=== PATIENT | female | born 1955 | race Caucasian/White ===

== ENCOUNTER → 2017-07-20 10:16 | Outpatient (CLI) | payer OTHER, SELFPAY ==
[2017-07-20 11:15] LABS: Add Manual Diff / Slide Review NO; Basophils Percent Auto 1.2 % (0-2); Eosinophils Percent Auto 1.3 % (2-4); Hematocrit 38.9 % (36-46); Lymphocytes Percent Auto 15.4 % (25-40); Mean Corpuscular HGB Conc 33.4 % (30-36); Mean Corpuscular Hemoglobin 30.5 PG (26-34); Mean Corpuscular Volume 91.2 fL (80-100); Monocytes Percent Auto 7.2 % (3-14); Neutrophils Absolute Auto 5300 /uL (3000-5900); Neutrophils Percent Auto 74.9 % (50-75); Platelet Count 466 X10^3/uL (150-400); Red Blood Cell Count 4.27 X10^6/uL (4.0-5.2); Red Cell Distribution Width 14.5 % (11.6-14.8); White Blood Cell Count 7.1 X10^3/uL (4.5-11.0)
[2017-07-20] MEDS: diphenhydrAMINE 50 MG/ML VIAL 25 MG IV (11:18)
[2017-07-20] MEDS: methylPREDNISolone 125 MG/2 ML VIAL IV (11:22)
[2017-07-20 11:32] VITALS: PULSE 76; RESP 18; TEMP 36.9; O2SAT 98
[2017-07-20] MEDS: INFLIXIMAB DYYB IV (11:42)
[2017-07-20] MEDS: SODIUM CHLORIDE 0.9% IV (11:42)
[2017-07-20 12:01] LABS: Alanine Aminotransferase 25 IU/L (9-52); Albumin 3.5 g/dL (3.5-5.0); Albumin Globulin Ratio 1.4 (1.0-2.8); Alkaline Phosphatase 67 U/L (38-126); Aspartate Aminotransferase 19 IU/L (14-36); Bilirubin Total 0.5 mg/dL (0.2-1.3); Bilirubin Unconjugated 0.3 mg/dL (0.0-1.1); Globulin 2.5 g/dL (1.7-4.1); HEMOLYSIS < 15 (0-50)
== END ==
PROVIDERS: Family Provider Family Medicine; PCP Family Medicine; Visit Provider Family Medicine
DX: K50.90 Crohn's disease, unspecified, without complications (principal)
CPT/HCPCS: 36415; 36591; 80076; 85025; 96365; 96366; 96375; J1200; J2930; Q5103

== ENCOUNTER → 2018-10-24 10:00 | Oncology outpatient (ONC) | payer OTHER, SELFPAY ==
[2017-09-15] MEDS: diphenhydrAMINE 50 MG/ML VIAL 25 MG IV (11:27)
[2017-09-15 11:41] VITALS: BP 121/89; PULSE 85; RESP 16; TEMP 36.6; O2SAT 97
[2017-09-15] MEDS: SODIUM CHLORIDE 0.9% IV (11:53)
[2017-09-15] MEDS: INFLIXIMAB DYYB IV (11:53)
[2017-09-15] MEDS: methylPREDNISolone 125 MG/2 ML VIAL 40 MG IV (12:00)
--- NOTE | 2017-09-15 13:21 | PC.NURSE ---
SOLU-MEDROL GIVEN BEFORE INFLIXIMAB STARTED PER PATIENT REQUEST DUE TO PREVIOUS REACTION.
[2017-09-15 16:15] VITALS: BP 112/68; PULSE 80; RESP 18; TEMP 36.7; O2SAT 95
--- NOTE | 2017-10-16 14:19 | PC.NURSE ---
Co-signed orders received form Dr Rubio office . Pt recieving Inflectra q 8 weeks.orders written on Remicade order sheet.Dr Rubio office called - spoke with Lexie nurse to clarify that biosimilar for Remicade Infliximab -dyyb orders are in [employer] and to please have orders sent on correct order sheet.Pt is due next in mid October.
[2017-11-14] MEDS: methylPREDNISolone 125 MG/2 ML VIAL 40 MG IV (11:10)
[2017-11-14] MEDS: diphenhydrAMINE 50 MG/ML VIAL 25 MG IV (11:11)
[2017-11-14] MEDS: SODIUM CHLORIDE 0.9% IV (11:40)
[2017-11-14] MEDS: INFLIXIMAB DYYB IV (11:40)
[2017-11-14 14:50] VITALS: BP 111/77; PULSE 81; RESP 16; TEMP 36.6
[2018-01-09] MEDS: diphenhydrAMINE 50 MG/ML VIAL 25 MG IV (11:24)
[2018-01-09] MEDS: methylPREDNISolone 125 MG/2 ML VIAL 40 MG IV (11:24)
[2018-01-09 11:40] VITALS: BP 129/85; PULSE 78; RESP 16; TEMP 36.8
[2018-01-09] MEDS: SODIUM CHLORIDE 0.9% IV (12:07)
[2018-01-09] MEDS: INFLIXIMAB DYYB IV (12:07)
--- NOTE | 2018-01-31 11:02 | PC.NURSE ---
Addendum entered by Agnieszka Nicole R.N. 01/31/18 11:12: Apparently he called from what may be an office number which is [phone]. I was never able to get an answer nor was there a chance to leave a voice mail. Original Note: Received a call from Dr Boyd Vinson. He is the physician managing this pts Crohn's disease medication Infliximab. Pt has been receiving 3mg/kg dose since as far back as 2016. He indicated in his message that he had reviewed her order and discovered she was on a dose that was not appropriate for her disease and would like to increase her to the 5mg/kg normally used to manage her Crohn's. I left a messag on his cell phone [phone] asking him to return my call so we could discuss Queta and send a new order for him to complete for her chart.
--- NOTE | 2018-02-05 11:35 | PC.NURSE ---
Triage note: Received new orders for Inflectra at higher dose. Copy of orders provided to Wayne, pharmacist and one copy given to Lexie for scanning and to file in chart. Noted Queta doesn't have her next infusion appt scheduled. Called Queta and she stated she thinks the higher dose may need to be prior auth'd before she receives it. Directed her to notify Dr Vinson office (taking over for Dr Cyr), as they need to verify need for auth and obtain if needed. Queta states she will notify them and call and make her appt once she hears back from them that she is good to go from an insurance standpoint.
[2018-03-07 09:48] VITALS: BP 126/83; PULSE 86; RESP 16; TEMP 36.6; O2SAT 97
[2018-03-07 10:18] LABS: Add Manual Diff / Slide Review NO; Hematocrit 40.3 % (36-46); Hemoglobin 13.2 g/dL (12.0-16.0); Lymphocytes Percent Auto 13.4 % (25-40); Mean Corpuscular HGB Conc 32.9 % (30-36); Mean Corpuscular Hemoglobin 30.6 PG (26-34); Mean Corpuscular Volume 93.1 fL (80-100); Monocytes Percent Auto 10.5 % (3-14); Neutrophils Absolute Auto 5400 /uL (1500-7000); Neutrophils Percent Auto 74.1 % (50-75); Platelet Count 468 X10^3/uL (150-400); Red Blood Cell Count 4.32 X10^6/uL (4.0-5.2); Red Cell Distribution Width 14.2 % (11.6-14.8); White Blood Cell Count 7.3 X10^3/uL (4.5-11.0)
[2018-03-07] MEDS: diphenhydrAMINE 50 MG/ML VIAL 25 MG IV (10:22)
[2018-03-07 10:29] LABS: Alanine Aminotransferase 20 IU/L (9-52); Albumin 3.9 g/dL (3.5-5.0); Albumin Globulin Ratio 1.4 (1.0-2.8); Alkaline Phosphatase 65 U/L (38-126); Aspartate Aminotransferase 18 IU/L (14-36); Bilirubin Total 0.5 mg/dL (0.2-1.3); Bilirubin Unconjugated 0.4 mg/dL (0.0-1.1); Globulin 2.8 g/dL (1.7-4.1); HEMOLYSIS < 15 (0-50); Total Protein 6.7 g/dL (6.3-8.2)
[2018-03-07] MEDS: methylPREDNISolone 125 MG/2 ML VIAL 40 MG IV (10:38)
[2018-03-07] MEDS: INFLIXIMAB DYYB IV (11:06)
[2018-03-07] MEDS: SODIUM CHLORIDE 0.9% IV (11:06)
[2018-05-10 11:27] LABS: Add Manual Diff / Slide Review NO; Basophils Absolute Auto 100 /uL (0-100); Basophils Percent Auto 0.9 % (0-2); Eosinophils Absolute Auto 100 /uL (0-450); Eosinophils Percent Auto 1.5 % (2-4); Hematocrit 38.5 % (36-46); Lymphocytes Absolute Auto 1000 /uL (1100-4500); Lymphocytes Percent Auto 13.6 % (25-40); Mean Corpuscular HGB Conc 33.7 % (30-36); Mean Corpuscular Hemoglobin 31.2 PG (26-34); Mean Corpuscular Volume 92.6 fL (80-100); Monocytes Absolute Auto 900 /uL (0-900); Monocytes Percent Auto 13.1 % (3-14); Neutrophils Absolute Auto 5000 /uL (1500-7000); Neutrophils Percent Auto 70.9 % (50-75); Platelet Count 526 X10^3/uL (150-400); Red Blood Cell Count 4.16 X10^6/uL (4.0-5.2); Red Cell Distribution Width 15.4 % (11.6-14.8)
[2018-05-10] MEDS: diphenhydrAMINE 50 MG/ML VIAL 25 MG IV (11:27)
[2018-05-10] MEDS: methylPREDNISolone 125 MG/2 ML VIAL 40 MG IV (12:00)
[2018-05-10 12:11] VITALS: BP 125/75; PULSE 67; RESP 16; O2SAT 99
[2018-05-10 12:12] LABS: Alanine Aminotransferase 21 IU/L (9-52); Albumin 3.7 g/dL (3.5-5.0); Albumin Globulin Ratio 1.3 (1.0-2.8); Alkaline Phosphatase 67 U/L (38-126); Aspartate Aminotransferase 19 IU/L (14-36); Bilirubin Total 0.5 mg/dL (0.2-1.3); Bilirubin Unconjugated 0.3 mg/dL (0.0-1.1); Globulin 2.8 g/dL (1.7-4.1); HEMOLYSIS < 15 (0-50); Total Protein 6.5 g/dL (6.3-8.2)
[2018-05-10] MEDS: INFLIXIMAB-DYYB 300 MG in SODIUM CHLORIDE 0.9% 250 ML 20 ML IV (12:21)
--- NOTE | 2018-05-10 15:27 | PC.NURSE ---
Patient tolerated infliximab infusion without problem. Ending vitals: T: 98.3, HR: 84, BP: 134/89.
[2018-07-03 11:04] LABS: RBC Urine None Seen (0-5/HPF)
[2018-07-03] MEDS: diphenhydrAMINE 50 MG/ML VIAL 25 MG IV (12:11)
[2018-07-03 12:15] LABS: Add Manual Diff / Slide Review NO; Basophils Absolute Auto 100 /uL (0-100); Basophils Percent Auto 1.1 % (0-2); Eosinophils Absolute Auto 100 /uL (0-450); Eosinophils Percent Auto 0.9 % (2-4); Hematocrit 38.2 % (36-46); Hemoglobin 12.8 g/dL (12.0-16.0); Lymphocytes Absolute Auto 1000 /uL (1100-4500); Lymphocytes Percent Auto 14.2 % (25-40); Mean Corpuscular HGB Conc 33.6 % (30-36); Mean Corpuscular Hemoglobin 31.6 PG (26-34); Mean Corpuscular Volume 94.1 fL (80-100); Monocytes Absolute Auto 600 /uL (0-900); Monocytes Percent Auto 8.6 % (3-14); Neutrophils Absolute Auto 5200 /uL (1500-7000); Neutrophils Percent Auto 75.2 % (50-75); Platelet Count 468 X10^3/uL (150-400); Red Blood Cell Count 4.06 X10^6/uL (4.0-5.2); Red Cell Distribution Width 14.5 % (11.6-14.8); White Blood Cell Count 6.9 X10^3/uL (4.5-11.0)
[2018-07-03] MEDS: methylPREDNISolone 125 MG/2 ML VIAL 40 MG IV (12:16)
[2018-07-03 12:23] LABS: Appearance Urine UA CLEAR; Bilirubin Urine UA NEGATIVE (NEGATIVE); Color Urine UA YELLOW; Glucose Urine UA NEGATIVE (Negative); Ketones Urine UA NEGATIVE (NEGATIVE); Leukocyte Esterase Urine UA NEGATIVE (NEGATIVE); Nitrite Urine UA NEGATIVE (Negative); Occult Blood Urine UA NEGATIVE (Negative); Protein Urine UA NEGATIVE (Negative); Urobilinogen Urine UA 0.2 E.U./dL (0.2)
[2018-07-03] MEDS: INFLIXIMAB-DYYB 300 MG in SODIUM CHLORIDE 0.9% 250 ML 20 ML IV (12:33)
[2018-07-03 13:33] LABS: Cholesterol 120 mg/dL (140-199); HDL Cholesterol 56 mg/dL (40-60); LDL Cholesterol Calculated 48 mg/dL (<100); Triglycerides 80 mg/dL (35-150)
[2018-07-03 13:51] LABS: Squamous Epithelial Cell Urine 5-10 /HPF (0-5/HPF); WBC Urine 1-5/HPF (0-5/HPF)
[2018-07-03 13:52] LABS: Bacteria Urine Few (2-10); Culture Indicated Urine Cult Not Indicated; Mucus Urine 1+ (Negative)
[2018-07-03 14:34] LABS: Alanine Aminotransferase 21 IU/L (9-52); Albumin 3.2 g/dL (3.5-5.0); Albumin Globulin Ratio 1.3 (1.0-2.8); Alkaline Phosphatase 65 U/L (38-126); Aspartate Aminotransferase 14 IU/L (14-36); Bilirubin Total 0.5 mg/dL (0.2-1.3); Bilirubin Unconjugated 0.3 mg/dL (0.0-1.1); Globulin 2.5 g/dL (1.7-4.1); HEMOLYSIS < 15 (0-50); Total Protein 5.7 g/dL (6.3-8.2)
[2018-07-03 15:17] VITALS: BP 140/92; PULSE 91; RESP 16; TEMP 36.6; O2SAT 95
[2018-08-29 10:28] VITALS: BP 124/85; PULSE 91; RESP 16; TEMP 36.8; O2SAT 95
[2018-08-29 10:52] LABS: Add Manual Diff / Slide Review NO; Basophils Absolute Auto 100 /uL (0-100); Basophils Percent Auto 1.1 % (0-2); Eosinophils Absolute Auto 100 /uL (0-450); Hematocrit 39.8 % (36-46); Hemoglobin 13.5 g/dL (12.0-16.0); Lymphocytes Absolute Auto 1000 /uL (1100-4500); Lymphocytes Percent Auto 14.3 % (25-40); Mean Corpuscular HGB Conc 33.9 % (30-36); Mean Corpuscular Hemoglobin 31.8 PG (26-34); Mean Corpuscular Volume 93.6 fL (80-100); Monocytes Absolute Auto 600 /uL (0-900); Monocytes Percent Auto 8.9 % (3-14); Neutrophils Absolute Auto 5200 /uL (1500-7000); Neutrophils Percent Auto 74.7 % (50-75); Platelet Count 427 X10^3/uL (150-400); Red Blood Cell Count 4.25 X10^6/uL (4.0-5.2); Red Cell Distribution Width 14.8 % (11.6-14.8)
[2018-08-29 11:05] LABS: Alanine Aminotransferase 19 IU/L (9-52); Albumin 3.8 g/dL (3.5-5.0); Albumin Globulin Ratio 1.3 (1.0-2.8); Alkaline Phosphatase 64 U/L (38-126); Aspartate Aminotransferase 28 IU/L (14-36); Bilirubin Total 0.7 mg/dL (0.2-1.3); Bilirubin Unconjugated 0.6 mg/dL (0.0-1.1); Globulin 2.9 g/dL (1.7-4.1); Total Protein 6.7 g/dL (6.3-8.2)
[2018-08-29 11:07] LABS: HEMOLYSIS 72 (0-50)
[2018-08-29] MEDS: methylPREDNISolone 125 MG/2 ML VIAL 40 MG IV (11:13)
[2018-08-29] MEDS: diphenhydrAMINE 50 MG/ML VIAL 25 MG IV (11:13)
[2018-08-29] MEDS: INFLIXIMAB-DYYB 300 MG in SODIUM CHLORIDE 0.9% 250 ML 20 ML IV (11:50)
--- NOTE | 2018-08-29 13:25 | PC.NURSE ---
Infliximab titrated up to 40ml/hr at 1205, 80ml/hr at 1220. pt resting in chair
[2018-08-29 14:03] VITALS: BP 100/63; PULSE 80; RESP 18; TEMP 36.7; O2SAT 95
[2018-08-29 14:29] VITALS: BP 115/78; PULSE 84; RESP 16; TEMP 36.8; O2SAT 96
[2018-10-24] MEDS: diphenhydrAMINE 50 MG/ML VIAL 25 MG IV (10:59)
[2018-10-24] MEDS: methylPREDNISolone 125 MG/2 ML VIAL 40 MG IV (10:59)
[2018-10-24 11:01] LABS: Alanine Aminotransferase 8 IU/L (9-52); Albumin 3.7 g/dL (3.5-5.0); Albumin Globulin Ratio 1.2 (1.0-2.8); Alkaline Phosphatase 64 U/L (38-126); Aspartate Aminotransferase 16 IU/L (14-36); Bilirubin Total 0.5 mg/dL (0.2-1.3); Bilirubin Unconjugated 0.4 mg/dL (0.0-1.1); HEMOLYSIS < 15 (0-50); Total Protein 6.7 g/dL (6.3-8.2)
[2018-10-24 11:05] LABS: Add Manual Diff / Slide Review NO; Basophils Absolute Auto 100 /uL (0-100); Basophils Percent Auto 1.2 % (0-2); Eosinophils Absolute Auto 100 /uL (0-450); Eosinophils Percent Auto 0.8 % (2-4); Hematocrit 38.9 % (36-46); Hemoglobin 13.2 g/dL (12.0-16.0); Lymphocytes Absolute Auto 800 /uL (1100-4500); Lymphocytes Percent Auto 12.4 % (25-40); Mean Corpuscular Hemoglobin 31.9 PG (26-34); Mean Corpuscular Volume 93.8 fL (80-100); Monocytes Absolute Auto 900 /uL (0-900); Monocytes Percent Auto 14.4 % (3-14); Neutrophils Absolute Auto 4600 /uL (1500-7000); Neutrophils Percent Auto 71.2 % (50-75); Platelet Count 480 X10^3/uL (150-400); Red Blood Cell Count 4.14 X10^6/uL (4.0-5.2); Red Cell Distribution Width 15.1 % (11.6-14.8); White Blood Cell Count 6.4 X10^3/uL (4.5-11.0)
[2018-10-24 11:11] VITALS: BP 111/73; PULSE 83; RESP 16; TEMP 36.8; O2SAT 94
[2018-10-24] MEDS: INFLIXIMAB-DYYB 300 MG in SODIUM CHLORIDE 0.9% 250 ML 20 ML IV (11:58)
[2018-10-24 14:18] VITALS: BP 110/74; PULSE 80; RESP 16; TEMP 36.9; O2SAT 96
--- NOTE | 2019-01-07 15:03 | PC.NURSE ---
ENTYVIO: this nurse spoke with office of Dr. Reyez requesting an official order for the planned Entyvio infusion (change from inflectra) and pre auth. They are still working on preauth and will fax over all necessary documents when complete. This nurse spoke with patient and she will call for appt once she knows preauth has gone through. She will also clarify when exactly labs will be needed with goal of keeping trips here to a minimum.
--- NOTE | 2019-01-07 16:17 | PC.NURSE ---
[facility]: rai Guerra, nurse for Dr. Reyez, the therapy plan which they faxed to us is electronically signed by Dr. Reyez in their system. If we write out the orders here in our form and send to them, Dr. Reyez will sign.
== END ==
PROVIDERS: Family Provider Family Medicine; Visit Provider Family Medicine
DX: K50.90 Crohn's disease, unspecified, without complications (principal)
CPT/HCPCS: 36415; 80061; 80076; 81001; 85025; 96365; 96366; 96375; 96376; 96413; 96415; J1200; J2930; Q5103

== ENCOUNTER → 2019-01-23 10:02 | Outpatient (CLI) | payer OTHER, SELFPAY ==
[2019-01-23 10:53] LABS: Add Manual Diff / Slide Review NO; Basophils Absolute Auto 0 /uL (0-100); Basophils Percent Auto 0.8 % (0-2); Eosinophils Absolute Auto 100 /uL (0-450); Eosinophils Percent Auto 1.2 % (2-4); Hematocrit 38.2 % (36-46); Lymphocytes Absolute Auto 1000 /uL (1100-4500); Lymphocytes Percent Auto 19.7 % (25-40); Mean Corpuscular HGB Conc 34.1 % (30-36); Mean Corpuscular Hemoglobin 32.8 PG (26-34); Mean Corpuscular Volume 96.4 fL (80-100); Monocytes Absolute Auto 700 /uL (0-900); Monocytes Percent Auto 13.4 % (3-14); Neutrophils Absolute Auto 3400 /uL (1500-7000); Neutrophils Percent Auto 64.9 % (50-75); Platelet Count 510 X10^3/uL (150-400); Red Blood Cell Count 3.96 X10^6/uL (4.0-5.2); Red Cell Distribution Width 16.7 % (11.6-14.8); White Blood Cell Count 5.2 X10^3/uL (4.5-11.0)
[2019-01-23 11:14] LABS: Erythrocyte Sedimentation Rate 30 MM/HR (0-20)
[2019-01-23 11:22] LABS: Alanine Aminotransferase 17 IU/L (<35); Albumin 3.6 g/dL (3.5-5.0); Albumin Globulin Ratio 1.4 (1.0-2.8); Alkaline Phosphatase 76 U/L (38-126); Aspartate Aminotransferase 25 IU/L (14-36); BUN Creatinine Ratio 17.5 (6-22); Bilirubin Total 0.6 mg/dL (0.2-1.3); Blood Urea Nitrogen 7 mg/dL (7-17); C-Reactive Protein Quant 1.6 mg/dL (<1.0); Calcium 9.3 mg/dL (8.4-10.2); Carbon Dioxide 30 mmol/L (22-32); Chloride 102 mmol/L (98-107); Estimated Glomerular Filt Rate > 60.0 mL/min (>60); Globulin 2.5 g/dL (1.7-4.1); Glucose 102 mg/dL (80-110); HEMOLYSIS < 15 (0-50); Potassium 3.9 mmol/L (3.4-5.1); Sodium 140 mmol/L (137-145); Total Protein 6.1 g/dL (6.3-8.2)
== END ==
PROVIDERS: Family Provider Family Medicine; PCP Family Medicine; Visit Provider Internal Medicine Gastroenterology
DX: K50.80 Crohn's disease of both small and large intestine without complications (principal)
CPT/HCPCS: 36415; 80053; 85025; 85651; 86140

== ENCOUNTER → 2019-02-06 09:33 | Outpatient (CLI) | payer OTHER, SELFPAY ==
[2019-02-06 10:11] LABS: Add Manual Diff / Slide Review NO; Basophils Absolute Auto 100 /uL (0-100); Basophils Percent Auto 1.3 % (0-2); Eosinophils Absolute Auto 100 /uL (0-450); Eosinophils Percent Auto 1.8 % (2-4); Hemoglobin 12.9 g/dL (12.0-16.0); Lymphocytes Absolute Auto 800 /uL (1100-4500); Lymphocytes Percent Auto 12.4 % (25-40); Mean Corpuscular Hemoglobin 32.9 PG (26-34); Mean Corpuscular Volume 96.7 fL (80-100); Monocytes Absolute Auto 600 /uL (0-900); Neutrophils Absolute Auto 5100 /uL (1500-7000); Neutrophils Percent Auto 75.5 % (50-75); Platelet Count 466 X10^3/uL (150-400); Red Blood Cell Count 3.93 X10^6/uL (4.0-5.2); Red Cell Distribution Width 16.4 % (11.6-14.8); White Blood Cell Count 6.8 X10^3/uL (4.5-11.0)
[2019-02-06 10:23] LABS: Erythrocyte Sedimentation Rate 32 MM/HR (0-20)
[2019-02-06 10:40] LABS: Alanine Aminotransferase 15 IU/L (<35); Albumin 3.7 g/dL (3.5-5.0); Albumin Globulin Ratio 1.4 (1.0-2.8); Alkaline Phosphatase 64 U/L (38-126); Aspartate Aminotransferase 24 IU/L (14-36); Bilirubin Total 0.8 mg/dL (0.2-1.3); Blood Urea Nitrogen 12 mg/dL (7-17); C-Reactive Protein Quant 2.7 mg/dL (<1.0); Calcium 9.3 mg/dL (8.4-10.2); Carbon Dioxide 31 mmol/L (22-32); Chloride 100 mmol/L (98-107); Estimated Glomerular Filt Rate > 60.0 mL/min (>60); Globulin 2.7 g/dL (1.7-4.1); Glucose 89 mg/dL (80-110); HEMOLYSIS < 15 (0-50); Potassium 3.1 mmol/L (3.4-5.1); Sodium 139 mmol/L (137-145); Total Protein 6.4 g/dL (6.3-8.2)
== END ==
PROVIDERS: PCP Family Medicine; Visit Provider Internal Medicine Gastroenterology
DX: K50.80 Crohn's disease of both small and large intestine without complications (principal)
CPT/HCPCS: 36415; 80053; 85025; 85651; 86140

== ENCOUNTER → 2019-03-07 09:43 | Outpatient (CLI) | payer OTHER, SELFPAY ==
[2019-03-07 12:12] LABS: Add Manual Diff / Slide Review NO; Basophils Absolute Auto 0 /uL (0-100); Basophils Percent Auto 0.5 % (0-2); Eosinophils Absolute Auto 100 /uL (0-450); Eosinophils Percent Auto 2.3 % (2-4); Hematocrit 40.6 % (36-46); Hemoglobin 13.8 g/dL (12.0-16.0); Lymphocytes Absolute Auto 1300 /uL (1100-4500); Lymphocytes Percent Auto 24.1 % (25-40); Mean Corpuscular HGB Conc 34.1 % (30-36); Mean Corpuscular Hemoglobin 32.7 PG (26-34); Monocytes Absolute Auto 500 /uL (0-900); Monocytes Percent Auto 9.3 % (3-14); Neutrophils Absolute Auto 3400 /uL (1500-7000); Neutrophils Percent Auto 63.8 % (50-75); Platelet Count 496 X10^3/uL (150-400); Red Blood Cell Count 4.23 X10^6/uL (4.0-5.2); Red Cell Distribution Width 14.4 % (11.6-14.8); White Blood Cell Count 5.4 X10^3/uL (4.5-11.0)
[2019-03-07 12:31] LABS: Erythrocyte Sedimentation Rate 18 MM/HR (0-20)
[2019-03-07 12:43] LABS: Alanine Aminotransferase 19 IU/L (<35); Albumin 3.9 g/dL (3.5-5.0); Albumin Globulin Ratio 1.3 (1.0-2.8); Alkaline Phosphatase 73 U/L (38-126); Aspartate Aminotransferase 31 IU/L (14-36); Bilirubin Total 0.5 mg/dL (0.2-1.3); Blood Urea Nitrogen 11 mg/dL (7-17); C-Reactive Protein Quant 1.1 mg/dL (<1.0); Calcium 9.3 mg/dL (8.4-10.2); Carbon Dioxide 29 mmol/L (22-32); Chloride 101 mmol/L (98-107); Estimated Glomerular Filt Rate > 60.0 mL/min (>60); Globulin 2.9 g/dL (1.7-4.1); Glucose 105 mg/dL (80-110); HEMOLYSIS < 15 (0-50); Potassium 3.3 mmol/L (3.4-5.1); Sodium 139 mmol/L (137-145); Total Protein 6.8 g/dL (6.3-8.2)
== END ==
PROVIDERS: PCP Family Medicine; Visit Provider Internal Medicine Gastroenterology
DX: K50.80 Crohn's disease of both small and large intestine without complications (principal)
CPT/HCPCS: 36415; 80053; 85025; 85651; 86140

== ENCOUNTER → 2019-04-05 14:57 | Outpatient (CLI) | payer OTHER, SELFPAY ==
[2019-04-05 15:28] LABS: Add Manual Diff / Slide Review NO; Basophils Absolute Auto 0 /uL (0-100); Basophils Percent Auto 0.4 % (0-2); Eosinophils Absolute Auto 0 /uL (0-450); Hematocrit 42.4 % (36-46); Hemoglobin 14.2 g/dL (12.0-16.0); Lymphocytes Absolute Auto 700 /uL (1100-4500); Lymphocytes Percent Auto 6.2 % (25-40); Mean Corpuscular HGB Conc 33.5 % (30-36); Mean Corpuscular Hemoglobin 31.1 PG (26-34); Mean Corpuscular Volume 92.8 fL (80-100); Monocytes Absolute Auto 200 /uL (0-900); Monocytes Percent Auto 1.9 % (3-14); Neutrophils Absolute Auto 10500 /uL (1500-7000); Neutrophils Percent Auto 91.5 % (50-75); Platelet Count 640 X10^3/uL (150-400); Red Blood Cell Count 4.57 X10^6/uL (4.0-5.2); Red Cell Distribution Width 13.6 % (11.6-14.8); White Blood Cell Count 11.5 X10^3/uL (4.5-11.0)
[2019-04-05 15:39] LABS: C-Reactive Protein Quant 0.6 mg/dL (<1.0)
[2019-04-05 15:44] LABS: Erythrocyte Sedimentation Rate 13 MM/HR (0-20)
== END ==
PROVIDERS: PCP Family Medicine; Visit Provider Internal Medicine Gastroenterology
DX: K50.80 Crohn's disease of both small and large intestine without complications (principal)
CPT/HCPCS: 36415; 85025; 85651; 86140

== ENCOUNTER → 2021-07-21 10:31 | Outpatient (CLI) | payer OTHER, SELFPAY ==
[2021-07-21 11:41] LABS: Appearance Urine UA CLEAR; Bilirubin Urine UA NEGATIVE (NEGATIVE); Color Urine UA YELLOW; Glucose Urine UA NEGATIVE (Negative); Ketones Urine UA NEGATIVE (NEGATIVE); Leukocyte Esterase Urine UA NEGATIVE (NEGATIVE); Nitrite Urine UA NEGATIVE (Negative); Occult Blood Urine UA NEGATIVE (Negative); Protein Urine UA NEGATIVE (Negative); Specific Gravity Urine UA 1.025 (1.000-1.035); Urobilinogen Urine UA 0.2 E.U./dL (0.2)
[2021-07-21 11:43] LABS: Add Manual Diff / Slide Review NO; Basophils Absolute Auto 100 /uL (0-100); Eosinophils Absolute Auto 200 /uL (0-450); Eosinophils Percent Auto 2.4 % (2-4); Hematocrit 39.6 % (36-46); Hemoglobin 13.3 g/dL (12.0-16.0); Lymphocytes Absolute Auto 1300 /uL (1100-4500); Lymphocytes Percent Auto 18.6 % (25-40); Mean Corpuscular HGB Conc 33.7 % (30-36); Mean Corpuscular Hemoglobin 29.9 PG (26-34); Mean Corpuscular Volume 88.9 fL (80-100); Monocytes Absolute Auto 500 /uL (0-900); Monocytes Percent Auto 7.3 % (3-14); Neutrophils Absolute Auto 4900 /uL (1500-7000); Neutrophils Percent Auto 69.7 % (50-75); Platelet Count 395 X10^3/uL (150-400); Red Blood Cell Count 4.46 X10^6/uL (4.0-5.2); Red Cell Distribution Width 13.2 % (11.6-14.8)
[2021-07-21 11:45] LABS: Bacteria Urine None Seen; Calcium Oxalate Crystals Urine Moderate; Culture Indicated Urine Cult Not Indicated; RBC Urine None Seen (0-5/HPF); WBC Urine None Seen (0-5/HPF)
[2021-07-21 12:13] LABS: Alanine Aminotransferase 22 IU/L (<35); Albumin 3.8 g/dL (3.5-5.0); Albumin Globulin Ratio 1.5 (1.0-2.8); Alkaline Phosphatase 61 U/L (38-126); Aspartate Aminotransferase 30 IU/L (14-36); BUN Creatinine Ratio 27.1 (6-22); Bilirubin Total 0.5 mg/dL (0.2-1.3); Blood Urea Nitrogen 13 mg/dL (7-17); Calcium 8.8 mg/dL (8.4-10.2); Carbon Dioxide 28 mmol/L (22-32); Chloride 103 mmol/L (98-107); Erythrocyte Sedimentation Rate 14 MM/HR (0-20); Estimated Glomerular Filt Rate > 60 mL/min (>60); Globulin 2.6 g/dL (1.7-4.1); Glucose 101 mg/dL (80-110); HEMOLYSIS < 15 (0-50); Potassium 3.5 mmol/L (3.4-5.1); Sodium 139 mmol/L (137-145); Total Protein 6.4 g/dL (6.3-8.2)
== END ==
PROVIDERS: PCP Family Medicine; Referring Provider Internal Medicine Gastroenterology; Visit Provider Internal Medicine Gastroenterology
DX: K50.80 Crohn's disease of both small and large intestine without complications (principal); N39.0 Urinary tract infection, site not specified
CPT/HCPCS: 36415; 80053; 81001; 85025; 85651

== ENCOUNTER → 2021-11-10 11:30 | Outpatient (CLI) | payer OTHER, SELFPAY ==
[2021-11-10 12:00] LABS: Add Manual Diff / Slide Review NO; Basophils Absolute Auto 0 /uL (0-100); Basophils Percent Auto 0.8 % (0-2); Eosinophils Absolute Auto 100 /uL (0-450); Eosinophils Percent Auto 1.2 % (2-4); Hematocrit 39.8 % (36-46); Hemoglobin 13.5 g/dL (12.0-16.0); Lymphocytes Absolute Auto 1400 /uL (1100-4500); Lymphocytes Percent Auto 21.1 % (25-40); Mean Corpuscular HGB Conc 33.9 % (30-36); Mean Corpuscular Volume 88.4 fL (80-100); Monocytes Absolute Auto 500 /uL (0-900); Monocytes Percent Auto 7.5 % (3-14); Neutrophils Absolute Auto 4500 /uL (1500-7000); Neutrophils Percent Auto 69.4 % (50-75); Platelet Count 393 X10^3/uL (150-400); Red Cell Distribution Width 13.2 % (11.6-14.8); White Blood Cell Count 6.5 X10^3/uL (4.5-11.0)
[2021-11-10 12:13] LABS: HEMOLYSIS < 15 (0-50); Iron 65 ug/dL (37-170)
[2021-11-10 12:14] LABS: Erythrocyte Sedimentation Rate 8 MM/HR (0-20)
[2021-11-10 12:15] LABS: Alanine Aminotransferase 21 IU/L (<35); Albumin 3.7 g/dL (3.5-5.0); Albumin Globulin Ratio 1.3 (1.0-2.8); Alkaline Phosphatase 60 U/L (38-126); Aspartate Aminotransferase 29 IU/L (14-36); BUN Creatinine Ratio 23.8 (6-22); Blood Urea Nitrogen 10 mg/dL (7-17); Calcium 8.5 mg/dL (8.4-10.2); Carbon Dioxide 28 mmol/L (22-32); Chloride 104 mmol/L (98-107); Estimated Glomerular Filt Rate > 60 mL/min (>60); Globulin 2.9 g/dL (1.7-4.1); Glucose 97 mg/dL (80-110); HEMOLYSIS < 15 (0-50); Potassium 3.1 mmol/L (3.4-5.1); Sodium 138 mmol/L (137-145); Total Protein 6.6 g/dL (6.3-8.2)
[2021-11-10 12:24] LABS: Percent Iron Saturation 19 % (15-50); Total Iron Binding Capacity 351 ug/dL (265-497); Transferrin 253 mg/dL (206-381)
[2021-11-10 12:59] LABS: Ferritin 52 ng/mL (11-264)
[2021-11-10 13:13] LABS: Vitamin B12 222 pg/mL (239-931)
== END ==
PROVIDERS: PCP Family Medicine; Referring Provider Physician Assistant; Visit Provider Physician Assistant
DX: M81.0 Age-related osteoporosis without current pathological fracture (principal); K50.818 Crohn's disease of both small and large intestine with other complication; R53.83 Other fatigue
CPT/HCPCS: 36415; 80053; 82306; 82607; 82728; 83540; 83550; 85025; 85651

== ENCOUNTER → 2022-01-08 08:59 | Outpatient (CLI) | payer OTHER, SELFPAY ==
--- NOTE | 2022-01-08 | DI.MRI.S_ITS ---
PROCEDURE: MR HAND LT WO CON INDICATIONS: Spontaneous rupture of other tendons, left hand TECHNIQUE: Noncontrast coronal T1 spin echo and T2 fast spin echo with fat saturation, axial proton density fast spin echo and T2 fast spin echo with fat saturation, sagittal T1 spin echo and STIR through the hand and fingers. COMPARISON: None. FINDINGS: Image quality: Excellent. Bones: The bones are normally aligned,. Moderate to severe 1st CMC joint osteoarthritic changes are seen with significant joint space narrowing, extensive subchondral sclerosis, cystic changes and edema with marginal osteophyte formation. Small to moderate amount of joint effusion is also seen at 1st CMC joint. Hoxy-lp-abiglwtr osteoarthritic changes are noted throughout rest of the left hand and wrist joints. No acute fracture or dislocation. No suspicious intraosseous lesion. 1st CMC joint: Thickened dorsal and volar ligaments of 1st CMC joint is seen with intrasubstance T2 hyperintense signal suggestive of ligament sprain/partial-thickness tear. Thickened radial collateral ligament of 2nd CMC joint is also noted with mild adjacent edema. Interphalangeal joint(s): The accessory and proper collateral ligaments appear intact. The volar plate demonstrates normal morphology. The extensor central slips appear intact on sagittal images. Metacarpophalangeal joint(s): The accessory and proper collateral ligaments appear intact, as well as the volar plate and adjacent deep transverse metacarpal ligaments. The sagittal bands of the extensor ray appear normal. Extensor apparatus: The central slips insert normally on the middle phalangeal base. The conjoint and terminal tendons insert normally on the distal phalangeal bases. More proximal portions of the extensor tendons also appear normal. Flexor apparatus: The flexor digitorum superficialis and profundus tendons both appear intact. Fluid signal along volar aspect of 1st metacarpal shaft is seen with disruption of A1 carly of 1st digit. Rest of the annular and cruciform pulleys appear intact, without adjacent soft tissue edema. Soft tissues: Visualized muscles demonstrate normal bulk and internal signal. No intramuscular masses identified. No ganglion cysts. IMPRESSION: 1. 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 No fracture or dislocation. Dukt-rf-gslsimaz osteoarthritic changes involving rest of the left hand and wrist. No suspicious intraosseous lesion. 2. Suggestion of moderate grade sprain/partial-thickness tear involving dorsal and volar collateral ligaments of 1st CMC joint and low to moderate grade partial-thickness tear involving radial collateral ligament of 2nd CMC joint. 3. Extensor and flexor tendons are grossly intact. Fluid along volar aspect of 1st metacarpal shaft with suggestion of at least partially torn A1 carly of 1st digit. Dictated by: Benedict John M.D. on 01/10/2022 at 9:40 Approved by: Benedict John M.D. on 01/10/2022 at 10:21
--- NOTE | 2022-01-08 09:59 | DI.MRI.S_ITS ---
PROCEDURE: MR WRIST LT WO CON INDICATIONS: Spontaneous rupture of other tendons, left hand TECHNIQUE: Noncontrast coronal proton density fast spin echo and T2 fast spin echo with fat saturation; coronal 3-D gradient echo, axial T1 spin echo and T2 fast spin echo with fat saturation, sagittal T1 spin echo through the wrist. COMPARISON: [facility], MR, MR HAND LT WO CON, 01/08/2022, 9:24. FINDINGS: Image quality: Excellent. Bones and cartilage: The carpal bones are normally aligned. Moderate to severe 1st CMC joint osteoarthritic changes are seen with significant joint space no lieu narrowing, extensive subchondral sclerosis and cyst formation and mild edema. No fracture or dislocation. Mwcw-gn-dwncygfq osteoarthritic changes are noted throughout rest of the wrist joints. No evidence of avascular necrosis. Carpal ligaments: The scapholunate and lunotriquetral ligaments appear intact. In the absence of intra-articular contrast, the extrinsic carpal ligaments are not well identified. On sagittal images, the pisohamate ligament appears intact. Triangular fibrocartilage complex: Degenerative changes are noted in triangular fibrocartilage near its ulnar insertion, focal TFCC tear cannot be excluded. The adjacent meniscal homolog appears normal in the absence of intra-articular contrast. The extensor carpi ulnaris tendon is normal in location and morphology. Tendons and soft tissues: Thickened extensor pollicis brevis and abductor pollicis longus tendons at the level of 1st CMC joint and distal carpal row with fluid distending tendon sheath is seen suggestive of moderate grade tenosynovitis and low-grade partial-thickness tear. Mild tendinosis involving extensor carpi radialis longus and brevis tendons at the level of radiocarpal joint and proximal carpal row to is seen with small amount of fluid distending tendon sheath. The carpal tunnel structures appear normal, including the median nerve. The ulnar nerve appears normal within Guyon's canal. Rest of the extensor tendon compartments demonstrate normal morphology, without pathologic tendon sheath fluid. No soft tissue ganglion cysts. IMPRESSION: 1. Osteoarthritic changes throughout left wrist joints most prominent at 1st CMC joint. No fracture or dislocation. No evidence of avascular necrosis. 2. Intrinsic and extrinsic wrist ligaments are grossly intact. 3. Degenerative changes in triangular fibrocartilage near its ulnar insertion, focal TFCC tear cannot be excluded. 4. Suggestion of moderate grade tenosynovitis and partial thickness tear involving extensor pollicis brevis and abductor pollicis longus tendons at the level of 1st CMC joint and distal carpal row. Suggestion of mild tendinosis and low-grade tenosynovitis involving extensor carpi radialis longus and brevis tendons. Flexor tendons are grossly intact. Dictated by: Benedict John M.D. on 01/10/2022 at 10:21 Approved by: Benedict John M.D. on 01/10/2022 at 10:54
== END ==
PROVIDERS: PCP Family Medicine; Referring Provider Orthopaedic Surgery; Visit Provider Orthopaedic Surgery
DX: M66.84 Spontaneous rupture of other tendons, hand (principal); M18.12 Unilateral primary osteoarthritis of first carpometacarpal joint, left hand
CPT/HCPCS: 73218; 73221

== ENCOUNTER → 2022-04-05 13:36 | Outpatient (CLI) | payer OTHER, SELFPAY ==
[2022-04-05 14:07] LABS: Add Manual Diff / Slide Review NO; Basophils Absolute Auto 100 /uL (0-100); Basophils Percent Auto 1.2 % (0-2); Eosinophils Absolute Auto 100 /uL (0-450); Eosinophils Percent Auto 1.8 % (2-4); Hematocrit 40.6 % (36-46); Hemoglobin 13.5 g/dL (12.0-16.0); Lymphocytes Absolute Auto 1300 /uL (1100-4500); Lymphocytes Percent Auto 21.8 % (25-40); Mean Corpuscular HGB Conc 33.2 % (30-36); Mean Corpuscular Hemoglobin 29.7 PG (26-34); Mean Corpuscular Volume 89.3 fL (80-100); Monocytes Absolute Auto 400 /uL (0-900); Monocytes Percent Auto 7.3 % (3-14); Neutrophils Absolute Auto 4200 /uL (1500-7000); Neutrophils Percent Auto 67.9 % (50-75); Platelet Count 394 X10^3/uL (150-400); Red Blood Cell Count 4.55 X10^6/uL (4.0-5.2); Red Cell Distribution Width 13.6 % (11.6-14.8); White Blood Cell Count 6.1 X10^3/uL (4.5-11.0)
[2022-04-05 14:26] LABS: Erythrocyte Sedimentation Rate 8 MM/HR (0-20)
[2022-04-05 14:39] LABS: Alanine Aminotransferase 21 IU/L (<35); Alkaline Phosphatase 55 U/L (38-126); Aspartate Aminotransferase 29 IU/L (14-36); BUN Creatinine Ratio 11.6 (6-22); Bilirubin Total 0.7 mg/dL (0.2-1.3); Blood Urea Nitrogen 5 mg/dL (7-17); Calcium 8.6 mg/dL (8.4-10.2); Carbon Dioxide 34 mmol/L (22-32); Chloride 98 mmol/L (98-107); Estimated Glomerular Filt Rate > 60 mL/min (>60); Glucose 96 mg/dL (80-110); HEMOLYSIS < 15 (0-50); Potassium 2.9 mmol/L (3.4-5.1); Sodium 141 mmol/L (137-145)
[2022-04-05 15:26] LABS: Vitamin B12 330 pg/mL (239-931)
[2022-04-08 16:17] LABS: Albumin 3.8 g/dL (3.5-5.0); Albumin Globulin Ratio 1.2 (1.0-2.8); Globulin 3.2 g/dL (1.7-4.1)
== END ==
PROVIDERS: Physician Assistant; PCP Family Medicine; Referring Provider Internal Medicine Gastroenterology; Visit Provider Internal Medicine Gastroenterology
DX: K50.80 Crohn's disease of both small and large intestine without complications (principal); E53.8 Deficiency of other specified B group vitamins
CPT/HCPCS: 36415; 80053; 82607; 85025; 85651

== ENCOUNTER → 2022-09-07 14:47 | Outpatient (CLI) | payer OTHER, SELFPAY ==
[2022-09-07 15:27] LABS: Add Manual Diff / Slide Review NO; Basophils Absolute Auto 100 /uL (0-100); Basophils Percent Auto 0.8 % (0-2); Eosinophils Absolute Auto 200 /uL (0-450); Eosinophils Percent Auto 1.8 % (2-4); Hematocrit 38.4 % (36-46); Hemoglobin 12.8 g/dL (12.0-16.0); Lymphocytes Absolute Auto 2000 /uL (1100-4500); Lymphocytes Percent Auto 24.5 % (25-40); Mean Corpuscular HGB Conc 33.4 % (30-36); Mean Corpuscular Hemoglobin 29.7 PG (26-34); Mean Corpuscular Volume 88.7 fL (80-100); Monocytes Absolute Auto 600 /uL (0-900); Monocytes Percent Auto 7.1 % (3-14); Neutrophils Absolute Auto 5500 /uL (1500-7000); Neutrophils Percent Auto 65.8 % (50-75); Platelet Count 387 X10^3/uL (150-400); Red Blood Cell Count 4.33 X10^6/uL (4.0-5.2); White Blood Cell Count 8.3 X10^3/uL (4.5-11.0)
[2022-09-07 15:48] LABS: Alanine Aminotransferase 19 IU/L (<35); Albumin 3.9 g/dL (3.5-5.0); Albumin Globulin Ratio 1.4 (1.0-2.8); Alkaline Phosphatase 62 U/L (38-126); Aspartate Aminotransferase 25 IU/L (14-36); BUN Creatinine Ratio 20.9 (6-22); Bilirubin Total 0.8 mg/dL (0.2-1.3); Blood Urea Nitrogen 9 mg/dL (7-17); Calcium 8.5 mg/dL (8.4-10.2); Carbon Dioxide 29 mmol/L (22-32); Chloride 101 mmol/L (98-107); Estimated Glomerular Filt Rate > 60 mL/min (>60); Globulin 2.8 g/dL (1.7-4.1); Glucose 95 mg/dL (80-110); HEMOLYSIS < 15 (0-50); Sodium 137 mmol/L (137-145); Total Protein 6.7 g/dL (6.3-8.2)
[2022-09-07 15:55] LABS: Potassium 2.7 mmol/L (3.4-5.1)
[2022-09-07 16:40] LABS: Vitamin B12 591 pg/mL (239-931)
[2022-09-07 16:56] LABS: Erythrocyte Sedimentation Rate 7 MM/HR (0-20)
== END ==
PROVIDERS: PCP Family Medicine; Referring Provider Internal Medicine Gastroenterology; Visit Provider Internal Medicine Gastroenterology
DX: K50.80 Crohn's disease of both small and large intestine without complications (principal); E53.8 Deficiency of other specified B group vitamins
CPT/HCPCS: 36415; 80053; 82607; 85025; 85651

== ENCOUNTER → 2022-09-30 11:58 | Outpatient (CLI) | payer OTHER, SELFPAY ==
[2022-09-30 13:44] LABS: HEMOLYSIS < 15 (0-50); Potassium 3.3 mmol/L (3.4-5.1)
== END ==
PROVIDERS: PCP Family Medicine; Referring Provider Internal Medicine Gastroenterology; Visit Provider Internal Medicine Gastroenterology
DX: K50.80 Crohn's disease of both small and large intestine without complications (principal)
CPT/HCPCS: 36415; 84132

== ENCOUNTER → 2022-12-01 10:56 | Outpatient (CLI) | payer OTHER, SELFPAY ==
[2022-12-01 12:20] LABS: BUN Creatinine Ratio 23.7 (6-22); Blood Urea Nitrogen 9 mg/dL (7-17); Calcium 9.3 mg/dL (8.4-10.2); Carbon Dioxide 30 mmol/L (22-32); Chloride 100 mmol/L (98-107); Estimated Glomerular Filt Rate > 60 mL/min (>60); Glucose 97 mg/dL (80-110); HEMOLYSIS < 15 (0-50); Magnesium 1.6 mg/dL (1.6-2.3); Potassium 3.5 mmol/L (3.4-5.1); Sodium 139 mmol/L (137-145)
[2022-12-01 12:49] LABS: TSH w/ Reflex to FT4 3.19 uIU/mL (0.47-4.68)
== END ==
PROVIDERS: PCP Family Medicine; Referring Provider Physician Assistant; Visit Provider Physician Assistant
DX: E87.6 Hypokalemia (principal); R00.2 Palpitations; R79.0 Abnormal level of blood mineral; R53.83 Other fatigue
CPT/HCPCS: 36415; 80048; 83735; 84443

== ENCOUNTER → 2022-12-15 13:36 | Outpatient (CLI) | payer OTHER, SELFPAY | PROVIDERS: PCP Family Medicine; Referring Provider Physician Assistant; Visit Provider Physician Assistant | DX: R00.2 Palpitations (principal) | CPT/HCPCS: 93246 ==

== ENCOUNTER → 2022-12-15 13:53 | Outpatient (CLI) | payer OTHER, SELFPAY ==
[2022-12-15 16:41] LABS: Appearance Urine UA CLOUDY; Bilirubin Urine UA NEGATIVE (NEGATIVE); Color Urine UA YELLOW; Glucose Urine UA NEGATIVE (Negative); Ketones Urine UA NEGATIVE (NEGATIVE); Leukocyte Esterase Urine UA 1+ (NEGATIVE); Nitrite Urine UA NEGATIVE (Negative); Occult Blood Urine UA 1+ (Negative); Protein Urine UA NEGATIVE (Negative); Urobilinogen Urine UA 0.2 E.U./dL (0.2)
[2022-12-15 17:01] LABS: Bacteria Urine Many (>30); Culture Indicated Urine Specimen Cultured; RBC Urine 5-10/HPF (0-5/HPF); Squamous Epithelial Cell Urine 5-10 /HPF (0-5/HPF); WBC Urine >100/HPF (0-5/HPF)
== END ==
PROVIDERS: PCP Family Medicine; Referring Provider Family Medicine; Visit Provider Family Medicine
DX: R30.0 Dysuria (principal)
CPT/HCPCS: 81001; 87077; 87086; 87186

== ENCOUNTER → 2023-06-23 10:02 | Outpatient (CLI) | payer OTHER, SELFPAY ==
--- NOTE | 2023-06-23 10:05 | DI.ECHO.S_ITS ---
[facility] +---------+ : : [address] : : : : [id number] : : : : Phone: [phone]+ Echocardiogram Report + + :Name: MUSHTAQ NOEL Study Date: 06/23/2023 Height: 64 in : :[facility] ReadingLocation: Weight: 140 lb : : Gender: Female BSA: 1.7 m2 : :: 1955 Age: 68 yrs BP: 137/101 mmHg: :Reason For Study: SUPRAVENTRICULAR TACHYCARDIA, PALPITATIONS : :Ordering Physician: JAIME, : :MAYDA Varela Performed By: Abdirahman Carvalho : :Referring: MAYDA LUNA : + + Interpretation Summary The study quality was technically difficult. The ejection fraction is estimated to be 50-55%. Diastolic parameters suggest probable normal left ventricular diastolic function and normal filling pressures. The right ventricle grossly appears normal in size with probable normal systolic function. No significant valvular abnormalities. Pulmonary artery pressures cannot be estimated because of the lack of a measurable TR jet velocity but the IVC suggests a CVP of around 3 mmHg. Procedure: A two-dimensional transthoracic echocardiogram with color flow and Doppler was performed. The study quality was technically difficult. A contrast injection of Definity was performed to improve assessment of LV function. There is no prior echocardiogram noted for this patient. The patient was in normal sinus rhythm during the exam. The heart rate ranged between 63- 75 bpm during the study. Left Ventricle: The left ventricle is normal in size and wall thickness. The ejection fraction is estimated to be 50-55%. Diastolic parameters suggest probable normal left ventricular diastolic function and normal filling pressures. Right Ventricle: The right ventricle is not well visualized. The right ventricle grossly appears normal in size with probable normal systolic function. Atria: The left atrial size is normal. Right atrial size is normal. The interatrial septum is not well visualized. Mitral Valve: The mitral valve is grossly normal. There is no mitral valve stenosis. There is no mitral regurgitation noted. Aortic Valve: The aortic valve is trileaflet. There is no aortic valve stenosis. No aortic regurgitation is present. Tricuspid Valve: The tricuspid valve is not well visualized, but is grossly normal. There has been no significant change since the previous study. There is trace tricuspid regurgitation. Pulmonary artery pressures cannot be estimated because of the lack of a measurable TR jet velocity but the IVC suggests a CVP of around 3 mmHg. Pulmonic Valve: The pulmonic valve is not well visualized. There is no pulmonic valvular stenosis. There is no pulmonic valvular regurgitation. Great Vessels: The aortic root is normal size. The dimensions of the ascending aorta are normal. The IVC is of normal diameter and collapses greater than 50% with a sniff. This suggests a low right atrial pressure of 3 mm Hg. Pericardium/ Pleura There is no pericardial effusion. There is no pleural effusion. MMode/2D Measurements & Calculations LVIDd: 4.1 cm LVOT diam: 1.8 cm LVIDs: 3.2 cm Ao root diam: 2.8 cm FS: 22.2 % asc Aorta Diam: 2.8 cm IVSd: 0.98 cm Ao Arch Diam (Prox Trans): 2.1 cm LVPWd: 0.82 cm LV fair. diameter/BSA (cm/m^2): 2.5 LV sys. diameter/BSA (cm/m^2): 1.9 LA A2 area: 14.5 cm2 RA long axis: 4.2 cm LA A4 area: 15.1 cm2 RA area: 10.6 cm2 LA length (vol): 5.0 cm RA vol: 22.9 ml LA vol: 37.3 ml RA : 13.6 ml/m2 LA vol index: 22.2 ml/m2 IVC diam: 1.4 cm RVD1 (basal): 3.5 cm RVD2 (mid): 3.5 cm TAPSE: 1.5 cm Doppler Measurements & Calculations Ao V2 max: 149.9 cm/sec LVOT Max Terence: 106.2 cm/sec Ao V2 mean: 110.0 cm/sec LV V1 max P.5 mmHg Ao max P.0 mmHg LV V1 VTI: 24.6 cm Ao mean P.2 mmHg PETER(I,D): 2.0 cm2 Ao V2 VTI: 32.7 cm PETER(V,D): 1.9 cm2 sev ratio: 0.75 PETER indexed to BSA (cm^2/m^2): 1.2 MV E max terence: 72.2 cm/sec TR max terence: 271.2 cm/sec MV A max terence: 96.4 cm/sec TR max P.4 mmHg MV E/A: 0.75 PA V2 max: 89.6 cm/sec Med Peak E' Terence: 3.7 cm/sec PA V2 mean: 64.6 cm/sec E/E' med: 19.7 PA mean P.8 mmHg Lat Peak E' Terence: 7.5 cm/sec PA pr(Accel): 39.6 mmHg E/E' lat: 9.6 E/e' average: 14.7 MV dec time: 0.26 sec SV(LVOT): 65.7 ml Reading Physician:02:32 PM
[2023-06-23 10:42] LABS: Appearance Urine UA CLEAR; Bilirubin Urine UA NEGATIVE (NEGATIVE); Color Urine UA YELLOW; Glucose Urine UA NEGATIVE (Negative); Ketones Urine UA NEGATIVE (NEGATIVE); Leukocyte Esterase Urine UA NEGATIVE (NEGATIVE); Nitrite Urine UA NEGATIVE (Negative); Occult Blood Urine UA NEGATIVE (Negative); Protein Urine UA NEGATIVE (Negative); Urobilinogen Urine UA 0.2 E.U./dL (0.2)
[2023-06-23 10:44] LABS: Urine Volume 10mL (spun)
[2023-06-23 10:45] LABS: Bacteria Urine None Seen; Culture Indicated Urine Cult Not Indicated; RBC Urine None Seen (0-5/HPF); Squamous Epithelial Cell Urine None Seen (0-5/HPF); WBC Urine None Seen (0-5/HPF)
--- NOTE | 2023-06-24 03:05 | DI.NM.S_ITS ---
DATE OF SERVICE: 06/23/2023 PROCEDURE: Pharmacologic vasodilator stress and rest myocardial perfusion imaging with gating to assess ejection fraction and regional wall motion. ORDERING PROVIDER: Mayda Luna M.D. INDICATIONS: The patient is a 68 year-old female with palpitations and documented nonsustained ventricular and supraventricular ectopy. CARDIAC STRESS: Per protocol, 0.4 mg of regadenoson was infused with a normal hemodynamic response producing minimal dyspnea, mild chest discomfort, and flushing that promptly resolved in recovery. Her resting ECG showed sinus rhythm with normal ST segments and occasional PVCs. With stress, there are no significant ST-segment shifts or additional arrhythmias. Per protocol, 25.2 millicuries of technetium-99m Myoview was injected and she was imaged 15 minutes later using a gated SPECT acquisition protocol. Earlier in the day while at rest, she had been injected with 12.1 millicuries of technetium-99m Myoview and was imaged 15 minutes later, again using a gated SPECT acquisition protocol. FINDINGS: 1. There is marginal myocardial tracer uptake producing suboptimal images, as well as unusual tracer uptake in structures behind the cardiac silhouette, adjacent to the posterior thoracic wall, perhaps reflecting bowel tracer uptake with an elevated diaphragm. This produces significant tracer overlap with the cardiac structures that make interpretation challenging. The lung/heart ratio is normal at 0.33 with a normal TID ratio of 0.72. 2. Quantitated gated SPECT: Post-stress ejection fraction is estimated to be 75% without any focal wall motion abnormality, and specifically the anterior wall has normal contractility. The resting images show similar contraction pattern with a normal resting end-diastolic volume is 72 mL. 3. Myocardial perfusion imaging: Post-stress supine images are challenging to interpret because of heterogeneous tracer activity and the absence of any prone images. There is reduced tracer activity in the distal portion of the left ventricle including the apex, and a more significant perfusion defect in the proximal to mid anterior wall, but sparing the mid to distal anterior wall, which would be an unusual distribution for a perfusion defect. There are no other significant perfusion defects. The resting images show a similar perfusion pattern although with some improvement in the perfusion defects, particularly in the distal anterior wall and apex. The proximal anterior defect has minimal improvement. IMPRESSION: 1. Probable normal myocardial perfusion study, although with significantly reduced sensitivity because of marginal image quality. 2. Predominantly fixed, minimally reversible perfusion defect in the proximal anterior wall, sparing most of the mid anterior wall, and a mild, predominantly fixed but slightly reversible defect in the distal portion of the left ventricle. Both defects most likely reflect attenuation artifact given the absence of any wall motion abnormality and there is no compelling evidence for significant myocardial ischemia but this cannot be entirely excluded. 3. Normal left ventricular size and systolic function without any focal wall motion abnormality. 4. Minimal dyspnea and chest pressure with pharmacologic vasodilator stress but no significant ST-segment shifts. She had occasional PACs, rarely in pairs, but no complex ectopy. 5. Compared to the previous myocardial perfusion study report from 12/25/2008, left ventricular size and systolic function are likely unchanged. Although previous images are not available for review, a mild fixed anterior defect was also noted previously that improved on the prone images and thus felt to most likely reflect breast attenuation artifact. 6. There is unusual tracer activity that extends along the back of the thoracic cavity behind the cardiac silhouette which affects the interpretation. This may reflect bowel activity with an elevated diaphragm, but clinical correlation is recommended. Consider additional imaging studies to further elucidate if clinically appropriate. Queta Schmitt - RS/elsi/kt doc#: [id number]/job#: [id number] dd: 06/23/2023 17:53:00 dt: 06/24/2023 02:52:00 DICTATING MD/COPIES TO: Tesfaye Castellano MD; Mayda Luna M.D. COPIES MNE: KOFI;
== END ==
PROVIDERS: PCP Family Medicine; Referring Provider Internal Medicine Cardiovascular Disease; Visit Provider Internal Medicine Cardiovascular Disease
DX: I47.10 Supraventricular tachycardia, unspecified (principal); I47.29 Other ventricular tachycardia; R00.2 Palpitations; R30.0 Dysuria
CPT/HCPCS: 78452; 81001; 93017; 93306; A9502; J2785

== ENCOUNTER → 2023-07-26 12:41 | Outpatient (CLI) | payer OTHER, SELFPAY ==
--- NOTE | 2023-07-26 12:44 | DI.CT.S_ITS ---
PROCEDURE: CT CHEST W CON INDICATIONS: Abnormal result of other cardiovascular function TECHNIQUE: After the administration of intravenous contrast, 5 mm thick sections acquired from the pulmonary apices to the posterior costophrenic angles. 1 mm axial lung, 5 mm thick coronal and sagittal reformats and 7 mm axial MIP were acquired. For radiation dose reduction, the following was used: automated exposure control, adjustment of mA and/or kV according to patient size. COMPARISON: None. FINDINGS: Image quality: Diagnostic. Lower Neck: No enlarged lymph nodes. Thyroid: No thyroid nodules which require sonographic follow up, per consensus guidelines. Axillae: No enlarged lymph nodes. Chest Wall: Unremarkable. Bones: Unremarkable. Lungs and Pleura: No pneumothorax or pleural effusions. No consolidation. Mild dependent opacity which has the appearance of atelectasis. No mass or significant pulmonary nodules. Central airways are clear. Heart: Heart size is normal. No pericardial effusion. Thoracic Vessels: The aorta and pulmonary arteries demonstrate normal size. Mild plaque at the aortic arch. No aortic dissection. No central pulmonary embolism. Mediastinum and Jill: No enlarged lymph nodes. Esophagus: No wall thickening. No hiatal hernia. Upper Abdomen: Visualized upper abdomen solid organs and bowel loops appear normal. IMPRESSION: 1. No significant acute airspace opacity. Minimal dependent atelectasis. 2. No mass or significant pulmonary nodules. 3. No adenopathy. Dictated by: Mamadou Adkins M.D. on 07/26/2023 at 14:45 Approved by: Mamadou Adkins M.D. on 07/26/2023 at 14:51
[2023-07-26 13:17] LABS: Estimated Glomerular Filt Rate > 60 mL/min (>60)
== END ==
LOC: CT 12:42
PROVIDERS: Radiology Diagnostic Radiology; PCP Family Medicine; Referring Provider Internal Medicine Cardiovascular Disease; Visit Provider Internal Medicine Cardiovascular Disease
DX: R94.39 Abnormal result of other cardiovascular function study (principal); R22.2 Localized swelling, mass and lump, trunk; J98.11 Atelectasis
CPT/HCPCS: 36415; 71260; 82565; Q9967

== ENCOUNTER → 2023-11-02 13:28 | Outpatient (CLI) | payer OTHER, SELFPAY ==
[2023-11-02 15:09] LABS: Hematocrit 40.2 % (36-46); Hemoglobin 13.3 g/dL (12.0-16.0); Mean Corpuscular HGB Conc 33.2 % (30-36); Mean Corpuscular Hemoglobin 30.2 PG (26-34); Mean Corpuscular Volume 90.9 fL (80-100); Platelet Count 355 X10^3/uL (150-400); Red Blood Cell Count 4.42 X10^6/uL (4.0-5.2); Red Cell Distribution Width 13.3 % (11.6-14.8); White Blood Cell Count 7.6 X10^3/uL (4.5-11.0)
[2023-11-02 15:30] LABS: Erythrocyte Sedimentation Rate 7 MM/HR (0-20)
[2023-11-02 15:39] LABS: BUN Creatinine Ratio 22.2 (6-22); Blood Urea Nitrogen 10 mg/dL (7-17); C-Reactive Protein Quant < 0.5 mg/dL (<1.0); Calcium 9.1 mg/dL (8.4-10.2); Carbon Dioxide 27 mmol/L (22-32); Chloride 104 mmol/L (98-107); Estimated Glomerular Filt Rate > 60 mL/min (>60); Glucose 97 mg/dL (80-110); HEMOLYSIS < 15 (0-50); Potassium 4.7 mmol/L (3.4-5.1); Sodium 138 mmol/L (137-145)
== END ==
LOC: LAB 13:31
PROVIDERS: PCP Family Medicine; Referring Provider Internal Medicine Gastroenterology; Visit Provider Internal Medicine Gastroenterology
DX: K50.80 Crohn's disease of both small and large intestine without complications (principal)
CPT/HCPCS: 36415; 80048; 85027; 85651; 86140

== ENCOUNTER → 2024-03-15 10:19 | Outpatient (CLI) | payer OTHER, SELFPAY ==
[2024-03-15 11:27] LABS: Hemoglobin 13.2 g/dL (12.0-16.0); Mean Corpuscular HGB Conc 33.8 % (30-36); Mean Corpuscular Hemoglobin 30.4 PG (26-34); Platelet Count 384 X10^3/uL (150-400); Red Blood Cell Count 4.33 X10^6/uL (4.0-5.2); Red Cell Distribution Width 13.1 % (11.6-14.8); White Blood Cell Count 6.7 X10^3/uL (4.5-11.0)
[2024-03-15 11:38] LABS: Hemoglobin A1C% w Est Avg Glu 5.2 % (4.0-6.0)
[2024-03-15 11:46] LABS: Cholesterol 142 mg/dL (140-199); HDL Cholesterol 63 mg/dL (40-60); LDL Cholesterol Calculated 57 mg/dL (<100); Triglycerides 110 mg/dL (35-150)
[2024-03-15 11:47] LABS: Alanine Aminotransferase 18 IU/L (<35); Albumin 3.9 g/dL (3.5-5.0); Albumin Globulin Ratio 1.6 (1.0-2.8); Alkaline Phosphatase 57 U/L (38-126); Aspartate Aminotransferase 28 IU/L (14-36); BUN Creatinine Ratio 20.5 (6-22); Bilirubin Total 0.7 mg/dL (0.2-1.3); Blood Urea Nitrogen 9 mg/dL (7-17); C-Reactive Protein Quant < 0.5 mg/dL (<1.0); Calcium 9.1 mg/dL (8.4-10.2); Carbon Dioxide 30 mmol/L (22-32); Chloride 103 mmol/L (98-107); Estimated Glomerular Filt Rate > 60 mL/min (>60); Globulin 2.4 g/dL (1.7-4.1); Glucose 100 mg/dL (80-110); HEMOLYSIS < 15 (0-50); Potassium 3.1 mmol/L (3.4-5.1); Sodium 138 mmol/L (137-145); Total Protein 6.3 g/dL (6.3-8.2)
== END ==
PROVIDERS: PCP Family Medicine; Referring Provider Internal Medicine Gastroenterology; Visit Provider Internal Medicine Gastroenterology
DX: K50.818 Crohn's disease of both small and large intestine with other complication (principal); Z00.00 Encounter for general adult medical examination without abnormal findings; Z13.9 Encounter for screening, unspecified
CPT/HCPCS: 36415; 80053; 80061; 83036; 85027; 86140

== ENCOUNTER → 2024-09-09 13:16 | Outpatient (CLI) | payer OTHER, SELFPAY ==
[2024-09-09 13:42] LABS: Add Manual Diff / Slide Review NO; Basophils Absolute Auto 100 /uL (0-100); Basophils Percent Auto 1.1 % (0-2); Eosinophils Absolute Auto 100 /uL (0-450); Hematocrit 39.5 % (36-46); Hemoglobin 13.2 g/dL (12.0-16.0); Lymphocytes Absolute Auto 1300 /uL (1100-4500); Lymphocytes Percent Auto 19.6 % (25-40); Mean Corpuscular HGB Conc 33.5 % (30-36); Mean Corpuscular Hemoglobin 30.5 PG (26-34); Mean Corpuscular Volume 91.1 fL (80-100); Monocytes Absolute Auto 600 /uL (0-900); Monocytes Percent Auto 8.3 % (3-14); Neutrophils Absolute Auto 4700 /uL (1500-7000); Platelet Count 329 X10^3/uL (150-400); Red Blood Cell Count 4.33 X10^6/uL (4.0-5.2); Red Cell Distribution Width 13.2 % (11.6-14.8); White Blood Cell Count 6.8 X10^3/uL (4.5-11.0)
[2024-09-09 14:18] LABS: Alanine Aminotransferase 48 IU/L (<35); Albumin Globulin Ratio 1.6 (1.0-2.8); Alkaline Phosphatase 65 U/L (38-126); Aspartate Aminotransferase 52 IU/L (14-36); Bilirubin Total 0.9 mg/dL (0.2-1.3); Blood Urea Nitrogen 11 mg/dL (7-17); Calcium 9.1 mg/dL (8.4-10.2); Carbon Dioxide 26 mmol/L (22-32); Chloride 104 mmol/L (98-107); Estimated Glomerular Filt Rate > 60 mL/min (>60); Globulin 2.5 g/dL (1.7-4.1); Glucose 105 mg/dL (70-99); HEMOLYSIS < 15 (0-50); Potassium 4.4 mmol/L (3.4-5.1); Sodium 138 mmol/L (137-145); Total Protein 6.5 g/dL (6.3-8.2)
== END ==
LOC: LAB 13:19
PROVIDERS: PCP Family Medicine; Referring Provider Internal Medicine Gastroenterology; Visit Provider Internal Medicine Gastroenterology
DX: K50.80 Crohn's disease of both small and large intestine without complications (principal)
CPT/HCPCS: 36415; 80053; 85025

== ENCOUNTER → 2025-02-27 12:34 | Outpatient (CLI) | payer OTHER, SELFPAY ==
[2025-02-27 13:09] LABS: Hematocrit 39.1 % (36-46); Hemoglobin 13.4 g/dL (12.0-16.0); Mean Corpuscular HGB Conc 34.3 % (30-36); Mean Corpuscular Hemoglobin 30.5 PG (26-34); Mean Corpuscular Volume 89.1 fL (80-100); Platelet Count 323 X10^3/uL (150-400)
[2025-02-27 13:31] LABS: Alanine Aminotransferase 15 IU/L (<35); Albumin 3.9 g/dL (3.5-5.0); Albumin Globulin Ratio 1.4 (1.0-2.8); Alkaline Phosphatase 53 U/L (38-126); Blood Urea Nitrogen 8 mg/dL (7-17); Calcium 9.0 mg/dL (8.4-10.2); Carbon Dioxide 29 mmol/L (22-32); Chloride 103 mmol/L (98-107); Estimated Glomerular Filt Rate > 60 mL/min (>60); Globulin 2.7 g/dL (1.7-4.1); Glucose 96 mg/dL (70-99); HEMOLYSIS < 15 (0-50); Potassium 4.1 mmol/L (3.4-5.1); Sodium 139 mmol/L (137-145); Total Protein 6.6 g/dL (6.3-8.2)
== END ==
PROVIDERS: PCP Family Medicine; Referring Provider Family Medicine; Visit Provider Internal Medicine Gastroenterology
DX: K50.818 Crohn's disease of both small and large intestine with other complication (principal)
CPT/HCPCS: 36415; 80053; 85027; 86140